=== PATIENT | male | born 1990 | race Caucasian/White ===

== ENCOUNTER 2016-12-05 10:31 | Emergency (ER) | payer SELFPAY ==
[~2016-12-05] VITALS: Ht 177.8 cm; Wt 139.7 kg
[~2016-12-05 10:31] MED LIST: DICY20TA3 PO; SIME80TA14 PO
[2016-12-05] MEDS ORDERED: CYCL-331 PO (11:09)
--- NOTE | 2016-12-05 11:10 | PHYS DOC ---
Past History Past Medical History: No Pertinent History Past Surgical History: No Surgical History Alcohol Use: None Drug Use: None Adult General Chief Complaint Chief Complaint: BACK PAIN OR INJURY HPI HPI Patient is a 26 year old M who presents with low back pain that started yesterday afternoon. 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 He was able to continue working throughout the day and into the evening with the pain. His pain radiates up the back but not down his legs. He has normal bowel movements and urination. He has no numbness or tingling. His pain is constant dull and fluctuating in intensity. This pain is worse with movement, palpation and positioning. His pain is improved with rest and positioning. He has no history of back pain. He is not a smoker. He is overweight states that he is active. Review of Systems Review of Systems Constitutional: Denies fever or chills [] Eyes: Denies change in visual acuity, redness, or eye pain [] HENT: Denies nasal congestion or sore throat [] Respiratory: Denies cough or shortness of breath [] Cardiovascular: No additional information not addressed in HPI [] GI: Denies abdominal pain, nausea, vomiting, bloody stools or diarrhea [] : Denies dysuria or hematuria [] Musculoskeletal: Negative except history of present illness Integument: Denies rash or skin lesions [] Neurologic: Denies headache, focal weakness or sensory changes [] Endocrine: Denies polyuria or polydipsia [] Family History Family History Noncontributory Current Medications Current Medications Current Medications Medications (Trade) Dose Ordered Sig/[facility] Start Time Stop Time Status Last Admin Dose Admin Diazepam (Valium) 10 mg 1X ONCE 12/05/16 11:00 12/05/16 11:01 No current medications Allergies Allergies Allergies Coded Allergies Type Severity Reaction Last Updated Verified Penicillins Allergy Unknown 02/26/16 Yes Physical Exam Physical Exam Constitutional: Well developed, well nourished, no acute distress, non-toxic appearance. [] Obese HENT: Normocephalic, atraumatic Eyes: EOMI, conjunctiva normal, no discharge. [] Neck: Normal range of motion, no tenderness, supple, no stridor. [] Cardiovascular:Heart rate regular rhythm, no murmur [] Lungs & Thorax: Bilateral breath sounds clear to auscultation [] Abdomen: Bowel sounds normal, soft, no tenderness, no masses, no pulsatile masses. [] Skin: Warm, dry, no erythema, no rash. [] Back: Mild lumbothoracic paraspinal muscle spasm noted bilaterally. Mild pain to palpation. Normal range of motion. Extremities: No tenderness, no cyanosis, no clubbing, ROM intact, no edema. [] Neurologic: Alert and oriented X 3, normal motor function, normal sensory function, no focal deficits noted. [] Psychologic: Affect normal, judgement normal, mood normal. [] Current Patient Data Vital Signs Vital Signs Date Time Temp Pulse Resp B/P (MAP) Pulse Ox O2 Delivery O2 Flow Rate FiO2 12/05/16 10:31 98.2 96 20 95 Room Air Course & Med Decision Making Course & Med Decision Making Pertinent Labs and Imaging studies reviewed. (See chart for details) His back pain is not associated with trauma or other injury. There are no indications for imaging. His pain is most consistent with muscle spasm for which she was given medication in the emergency room as well as prescription. He is strongly encouraged to can continue his daily activity as tolerated and to consider further management if his pain does not improve in the next 3-5 days Dragon Disclaimer Dragon Disclaimer This chart was dictated in whole or in part using Voice Recognition software in a busy, high-work load, and often noisy Emergency Department environment. It may contain unintended and wholly unrecognized errors or omissions. Departure Departure: Impression: Primary Impression: Muscle spasm Disposition: 01 HOME, SELF-CARE Condition: STABLE Referrals: PCPJOLEEN (PCP) Patient Instructions: Back Exercises Additional Instructions: Rio was seen in the emergency room for back pain. No emergency medical condition was found on history or physical exam. No imaging was indicated. History was most consistent with a muscle spasm. He was given a prescription for muscle relaxer. For further management he should consider massage therapy and/or physical therapy. He is advised follow-up with his primary care doctor in the next 7-10 days for further management and was advised to return to the emergency room if he develops neurologic symptoms. Scripts Cyclobenzaprine Hcl (CYCLOBENZAPRINE HCL) 10 Mg Tablet 1 TAB PO TID Y for PAIN for 3 Days, #9 TAB Prov: DAISY ALONSO MD 12/05/16 DAISY ALONSO MD Dec 05, 2016 11:10
[2016-12-05 11:22] VITALS: BP 164/108
== END 2016-12-05 11:33 | disposition home or self-care (01) ==
LOC: ER 10:31
DX: M62.830 Muscle spasm of back (principal); Z88.0 Allergy status to penicillin
CPT/HCPCS: 96372; 99283-25

== ENCOUNTER 2017-03-14 11:18 | Emergency (ER) | payer SELFPAY ==
[~2017-03-14 11:18] MED LIST changes: +CYCL-331 PO
[2017-03-14] MEDS ORDERED: BUDE0.5A3 NEB (12:04)
[2017-03-14] MEDS ORDERED: IPRA15SP NS (12:04)
--- NOTE | 2017-03-14 12:05 | PHYS DOC ---
Past History Past Medical History: No Pertinent History Past Surgical History: No Surgical History Alcohol Use: None Drug Use: None Adult General Chief Complaint Chief Complaint: COUGH HPI HPI Patient is a 26 year old M who presents with Cough and nasal congestion. he states that his symptoms have been present over the past 4 weeks with intermittent intensity. He describes postnasal drainage and productive cough. He denies shortness of breath, fevers or chills. He does have a history of asthma does not use inhalers regularly. He has no other exacerbating or alleviating factors. He has no other associated symptoms Review of Systems Review of Systems Constitutional: Denies fever or chills [] Eyes: Denies change in visual acuity, redness, or eye pain [] HENT: Denies nasal congestion or sore throat [] Respiratory: Negative except history of present illness Cardiovascular: No additional information not addressed in HPI [] GI: Denies abdominal pain, nausea, vomiting, bloody stools or diarrhea [] : Denies dysuria or hematuria [] Musculoskeletal: Denies back pain or joint pain [] Integument: Denies rash or skin lesions [] Neurologic: Denies headache, focal weakness or sensory changes [] Endocrine: Denies polyuria or polydipsia [] All other systems were reviewed and found to be within normal limits, except as documented in this note. Family History Family History Noncontributory Current Medications Current Medications Medications reviewed Allergies Allergies Allergies Coded Allergies Type Severity Reaction Last Updated Verified Penicillins Allergy Unknown 02/26/16 Yes Physical Exam Physical Exam Constitutional: Well developed, well nourished, no acute distress, non-toxic appearance. [] HENT: Normocephalic, atraumatic, bilateral external ears normal, oropharynx moist, no oral exudates, mild to moderate nasal congestion bilaterally with mild mucous noted Eyes: EOMI, conjunctiva normal, no discharge. [] Neck: Normal range of motion, no tenderness, supple, no stridor. [] Cardiovascular:Heart rate regular rhythm, no murmur [] Lungs & Thorax: Bilateral breath sounds clear to auscultation [] dry cough noted Abdomen: Bowel sounds normal, soft, no tenderness, no masses, no pulsatile masses. [] Skin: Warm, dry, no erythema, no rash. [] Back: No tenderness, no CVA tenderness. [] Extremities: No tenderness, no cyanosis, no clubbing, ROM intact, no edema. [] Neurologic: Alert and oriented X 3, normal motor function, normal sensory function, no focal deficits noted. [] Psychologic: Affect normal, judgement normal, mood normal. [] Current Patient Data Vital Signs Vital Signs Date Time Temp Pulse Resp B/P (MAP) Pulse Ox O2 Delivery O2 Flow Rate FiO2 03/14/17 11:20 98.0 93 20 94 Room Air EKG EKG [] Radiology/Procedures Radiology/Procedures Imaging was declined Course & Med Decision Making Course & Med Decision Making Pertinent Labs and Imaging studies reviewed. (See chart for details) [] Dragon Disclaimer Dragon Disclaimer This electronic medical record was generated, in whole or in part, using a voice recognition dictation system. Departure Departure: Impression: Primary Impression: Upper respiratory infection Additional Impression: Bronchitis Disposition: HOME, SELF-CARE Condition: STABLE Referrals: PCP,NO (PCP) Patient Instructions: Acute Bronchitis, Upper Respiratory Infection, Adult Additional Instructions: Rio was seen in the emergency department for cough and congestion. No emergency medical condition was found on history or physical exam. His advised to use nasal saline rinses regularly. He is given prescriptions for nasal spray and inhaled steroid. He is advised follow-up with his primary care doctor as needed for further management. Scripts Budesonide (PULMICORT) 0.5 Mg/2 Ml Ampul.neb 1 VIAL NEB BID, #60 VIAL 3 Refills Prov: DAISY ALONSO MD 03/14/17 Ipratropium [place] (IPRATROPIUM BROMIDE) 15 Ml [place] 15 ML NS TID for 7 Days, SPRAY Prov: DAISY ALONSO MD 03/14/17 Problem Qualifiers Primary Impression: Upper respiratory infection URI type: unspecified viral URI Qualified Codes: J06.9 - Acute upper respiratory infection, unspecified; B97.89 - Other viral agents as the cause of diseases classified elsewhere DAISY ALONSO MD Mar 14, 2017 12:04
[2017-03-14 12:13] VITALS: BP 154/95
== END 2017-03-14 12:13 | disposition home or self-care (01) ==
LOC: ER 11:18
DX: J06.9 Acute upper respiratory infection, unspecified (principal); J40 Bronchitis, not specified as acute or chronic; J45.909 Unspecified asthma, uncomplicated; B97.89 Other viral agents as the cause of diseases classified elsewhere; Z88.0 Allergy status to penicillin
CPT/HCPCS: 99283

== ENCOUNTER 2017-04-13 14:14 | Emergency (ER) | payer SELFPAY ==
[~2017-04-13] VITALS: Ht 177.8 cm; Wt 139.7 kg
[~2017-04-13 14:14] MED LIST changes: +BUDE0.5A3 NEB; +IPRA15SP NS
[2017-04-13 14:15] VITALS: BP 154/95
[2017-04-13] MEDS ORDERED: IBUP800T19 PO (15:07)
[2017-04-13] MEDS ORDERED: CEPH-264 PO (15:07)
--- NOTE | 2017-04-13 15:07 | PHYS DOC ---
Past History Past Medical History: No Pertinent History Past Surgical History: No Surgical History Smoking: Non-smoker Alcohol Use: None Drug Use: None Adult General Chief Complaint Chief Complaint: SORE THROAT HPI HPI 26-year-old male patient complaining of sore throat and subjective fever and chills and headache and weakness since yesterday. Patient complaining of mild nasal congestion without vomiting, diarrhea, sick contact, cough, chest pain and shortness of breath. Patient denies history of frequent sore throat. Review of Systems Review of Systems Constitutional: Poor subjective fever and chills Eyes: Denies change in visual acuity, redness, or eye pain [] HENT: Reports nasal congestion and sore throat [] Respiratory: Denies cough or shortness of breath [] Cardiovascular: No additional information not addressed in HPI [] GI: Denies abdominal pain, nausea, vomiting, bloody stools or diarrhea [] : Denies dysuria or hematuria [] Musculoskeletal: Denies back pain or joint pain [] Integument: Denies rash or skin lesions [] Neurologic: Denies headache, focal weakness or sensory changes [] Endocrine: Denies polyuria or polydipsia [] All other systems were reviewed and found to be within normal limits, except as documented in this note. Allergies Allergies Allergies Coded Allergies Type Severity Reaction Last Updated Verified Penicillins Allergy Unknown 02/26/16 Yes Physical Exam Physical Exam Constitutional: Well nourished,mild distress, non-toxic appearance, morbidly obese. [] HENT: Normocephalic, atraumatic, bilateral external ears normal, bilateral tonsillar edema and erythema and exudate, nose normal. [] Eyes: PERRLA, EOMI, conjunctiva normal, no discharge. [] Neck: Normal range of motion, no tenderness, supple, no stridor. [] Cardiovascular:Heart rate regular rhythm, no murmur [] Lungs & Thorax: Bilateral breath sounds clear to auscultation [] Abdomen: Bowel sounds normal, soft, no tenderness, no masses, no pulsatile masses. [] Skin: Warm, dry, no erythema, no rash. [] Back: No tenderness, no CVA tenderness. [] Extremities: No tenderness, no cyanosis, no clubbing, ROM intact, no edema. [] Neurologic: Alert and oriented X 3, normal motor function, normal sensory function, no focal deficits noted. [] EKG EKG [] Radiology/Procedures Radiology/Procedures [] Course & Med Decision Making Course & Med Decision Making Pertinent Labs reviewed. (See chart for details) Evaluation of patient in ER showed 26-year-old male patient presented to ER because of sore throat and subjective fever and chills for 24 hours. Patient had tonsillar edema with exudate and positive strep test. Patient was allergic to penicillin with rash and one dose of Rocephin in ER was given. Plan to discharge patient home with diagnosis of strep pharyngitis and prescription of Keflex and ibuprofen. [] Dragon Disclaimer Dragon Disclaimer This electronic medical record was generated, in whole or in part, using a voice recognition dictation system. Departure Departure: Impression: Primary Impression: Strep pharyngitis Disposition: HOME, SELF-CARE (At 1510) Condition: IMPROVED Referrals: PCP,NO (PCP) Patient Instructions: Strep Throat Additional Instructions: Drink plenty of liquids Scripts Cephalexin (KEFLEX) 500 Mg Capsule 1 CAP PO QID, #28 CAP Prov: JENNIFER SAMUEL MD 04/13/17 Ibuprofen (IBUPROFEN) 800 Mg Tablet 1 TAB PO TID, #30 TAB Prov: JENNIFER SAMUEL MD 04/13/17 JENNIFER SAMUEL MD Apr 13, 2017 15:07
[2017-04-13] MEDS ORDERED: IBUPROFEN 600 MG TABLET. PO ONE (15:15)
[2017-04-13] MEDS ORDERED: cefTRIAXone IM 1 GM VIAL IM ONE (15:15)
== END 2017-04-13 15:43 | disposition home or self-care (01) ==
LOC: ER 14:14
DX: J02.0 Streptococcal pharyngitis (principal); R51 Headache; Z88.0 Allergy status to penicillin
CPT/HCPCS: 87880; 96372; 99283; J0696

== ENCOUNTER 2019-07-24 11:31 | Emergency (ER) | payer OTHER ==
[~2019-07-24] VITALS: Ht 177.8 cm; Wt 130.0 kg
[~2019-07-24 11:31] MED LIST changes: +CEPH-264 PO; +IBUP800T19 PO
[2019-07-24 11:48] VITALS: BP 166/119
--- NOTE | 2019-07-24 11:50 | PHYS DOC ---
Past History Past Medical History: No Pertinent History Past Surgical History: No Surgical History Smoking: Non-smoker Alcohol Use: None Drug Use: None General Adult EDM: Chief Complaint: LACERATION/AVULSION HPI: HPI: Patient is a 29-year-old male who scraped his left hand on a davide nail yesterday at work. He said no real complaints in regards to it but his employer wanted him to come get a tetanus shot today. No other complaints at this time [] Review of Systems: Review of Systems: Constitutional: Denies fever or chills Eyes: Denies change in visual acuity HENT: Denies nasal congestion or sore throat Respiratory: Denies cough or shortness of breath Cardiovascular: Denies chest pain or edema GI: Denies abdominal pain, nausea, vomiting, bloody stools or diarrhea : Denies dysuria Musculoskeletal: Denies back pain or joint pain Integument: Per HPI Neurologic: Denies headache, focal weakness or sensory changes Endocrine: Denies polyuria or polydipsia Lymphatic: Denies swollen glands Psychiatric: Denies depression or anxiety Heart Score: Risk Factors: Risk Factors: DM, Current or recent (<one month) smoker, HTN, HLP, family history of CAD, obesity. Risk Scores: Score 0 - 3: 2.5% MACE over next 6 weeks - Discharge Home Score 4 - 6: 20.3% MACE over next 6 weeks - Admit for Clinical Observation Score 7 - 10: 72.7% MACE over next 6 weeks - Early Invasive Strategies Current Medications: Current Meds: Current Medications Medications (Trade) Dose Ordered Sig/[facility] Start Time Stop Time Status Last Admin Dose Admin Tetanus/ Diphtheria Toxoids Adsorbed (Tenivac Vial) 0.5 ml ONCE ONCE 07/24/19 11:45 07/24/19 11:46 UNV Allergies: Allergies: Allergies Coded Allergies Type Severity Reaction Last Updated Verified Penicillins Allergy Unknown 02/26/16 Yes Physical Exam: PE: Constitutional: Well developed, well nourished, no acute distress, non-toxic appearance. [] HENT: Normocephalic, atraumatic, bilateral external ears normal, oropharynx moist, no oral exudates, nose normal. [] Eyes: PERRLA, EOMI, conjunctiva normal, no discharge. [] Neck: Normal range of motion, no tenderness, supple, no stridor. [] Cardiovascular:Heart rate regular rhythm, no murmur [] Lungs & Thorax: Bilateral breath sounds clear to auscultation [] Abdomen: Bowel sounds normal, soft, no tenderness, no masses, no pulsatile masses. [] Skin: There is a tiny scratch on the left thenar eminence. [] Back: No tenderness, no CVA tenderness. [] Extremities: No tenderness, no cyanosis, no clubbing, ROM intact, no edema. [] Neurologic: Alert and oriented X 3, normal motor function, normal sensory function, no focal deficits noted. [] Psychologic: Affect normal, judgement normal, mood normal. [] EKG: EKG: [] Radiology/Procedures: Radiology/Procedures: [] Course & Med Decision Making: Course & Med Decision Making Pertinent Labs and Imaging studies reviewed. (See chart for details) [] Dragon Disclaimer: Dragon Disclaimer: This electronic medical record was generated, in whole or in part, using a voice recognition dictation system. Departure Departure: Impression: Primary Impression: Abrasion of left hand Qualified Codes: S60.512A - Abrasion of left hand, initial encounter Disposition: HOME, SELF-CARE Condition: STABLE Referrals: PCP,NO (PCP) Patient Instructions: ODILIA De Jesus DO Jul 24, 2019 11:50
[2019-07-24] MEDS ORDERED: TETANUS AND DIPHTHERIA TOX/PF 0.5 ML VIAL. VAX IM ONE (12:00)
== END 2019-07-24 12:11 | disposition home or self-care (01) ==
LOC: ER 11:31
DX: S60.512A Abrasion of left hand, initial encounter (principal); Z88.0 Allergy status to penicillin; W01.198A Fall on same level from slipping, tripping and stumbling with subsequent striking against other object, initial encounter; Y93.89 Activity, other specified; Y92.002 Bathroom of unspecified non-institutional (private) residence as the place of occurrence of the external cause; Y99.0 Civilian activity done for income or pay
CPT/HCPCS: 90471; 90714; 99283